=== PATIENT | female | born 1990 | race Two or more races ===

== ENCOUNTER 2022-11-06 15:51 | Emergency (ER) | payer OTHER ==
[2022-11-06] MEDS ORDERED: Ibuprofen 800 MG TAB ONE (17:56)
== END 2022-11-06 18:09 | disposition home or self-care (01) ==
LOC: ERS 15:51
DX: S86.912A Strain of unspecified muscle(s) and tendon(s) at lower leg level, left leg, initial encounter (principal); S86.911A Strain of unspecified muscle(s) and tendon(s) at lower leg level, right leg, initial encounter; Y92.69 Other specified industrial and construction area as the place of occurrence of the external cause
CPT/HCPCS: 99283

== ENCOUNTER 2024-06-09 09:14 | Emergency (ER) | payer OTHER ==
[2024-06-09] MEDS ORDERED: HYDROcodone/Acetaminophen 5/325 mg Tablet ONE ×2 (10:05→12:43)
[2024-06-09] MEDS ORDERED: Ketorolac Tromethamine 30 MG (1 mL) VIAL ONE (12:42)
== END 2024-06-09 13:43 | disposition home or self-care (01) ==
LOC: ERS 09:14
DX: S82.841A Displaced bimalleolar fracture of right lower leg, initial encounter for closed fracture (principal); V00.841A Fall from standing electric scooter, initial encounter
CPT/HCPCS: 29515; 96372; J1885